=== PATIENT | male | born 1960 | race Caucasian/White ===

== ENCOUNTER 2024-11-26 15:52 | Inpatient (IN) | payer MEDICAID, OTHER ==
[~2024-11-26] VITALS: Ht 167.6 cm; Wt 88.2 kg
[2024-11-26 00:25] VITALS: BP 127/72; PULSE 60; RESP 16; TEMP 97.6; O2SAT 96
--- NOTE | 2024-11-26 16:08 | ED.PDOC ---
HPI (NEURO) HPI Comments This is a 64-year-old male, with a PMHX of hypertension, who presents to the ED via EMS with a chief complaint of syncopal episode with associated dizziness just minutes ago. Per EMS, patient has been having syncopal episodes for 1-1/2 years. Per patient, syncopal episodes happen spontaneously, typically when walking, and do not last longer than a couple of seconds. Patient is currently seeing a neurologist. Patient has no further complaints at this time and otherwise denies further associated symptoms of N/V/D, fever, chills, headache, or blurred vision. Chief Complaint: Syncope Time Seen by MD: 16:00 Reviewed Notes: Community Planning Technician Notes, Medications, Allergies Information Source: Patient, Emergency Med Personnel Mode of Arrival: EMS Severity: Moderate Timing: Came on: Suddenly Circumstances: Spontaneous Symptoms: Syncope During: Awake Associated Signs and Symptoms: Other (syncope with mild dizziness ) Past Medical History PAST MEDICAL HISTORY: HTN Surgical History: Denies all surgeries Family History Family History: Reviewed,noncontributory to illness, No family hx of Cancer, No family hx of DM, No family hx of Heart sally, No family hx of HTN, No family hx ofKidney sally, No family hx of Liver sally, No family hx of Lung sally, No family hx of Stroke Social History Smoker: Non-Smoker Alcohol: Denies ETOH Use Drugs: Denies Drug Use Lives In: Home Constitutional: denies: chills, diaphoresis, fatigue, fever, malaise, sweats, weakness, others EENTM: denies: blurred vision, double vision, ear bleeding, ear discharge, ear drainage, ear pain, ear ringing, eye pain, eye redness, hearing loss, mouth pain, mouth swelling, nasal discharge, nose bleeding, nose congestion, nose pain, photophobia, tearing, throat pain, throat swelling, voice changes, others Respiratory: denies: cough, hemoptysis, orthopnea, SOB at rest, shortness of breath, SOB with excertion, stridor, wheezing, others Cardiovascular: denies: chest pain, dizzy spells, diaphoresis, Dyspnea on exertion, edema, irregular heart beat, left arm pain, lightheadedness, palpitations, PND, syncope, others Gastrointestinal: denies: abdomen distended, abdominal pain, blood streaked bowels, constipated, diarrhea, dysphagia, difficulty swallowing, hematemesis, melena, nausea, poor appetite, poor fluid intake, rectal bleeding, rectal pain, vomiting, others Genitourinary: denies: burning, dysuria, flank pain, frequency, hematuria, incontinence, penile discharge, penile sore, pain, testicle pain, testicle swelling, urgency, others Neurological: reports: dizziness, others (syncope ); denies: fainting, headache, left sided numbness, left sided weakness, numbness, paresthesia, pre- existing deficit, right sided numbness, right sided weakness, seizure, speech problems, tingling, tremors, weakness Musculoskeletal: denies: back pain, gout, joint pain, joint swelling, muscle pain, muscle stiffness, neck pain, others Integumetry: denies: bruises, change in color, change in hair/nails, dryness, laceration, lesions, lumps, rash, wounds, others Allergic/Immunocompromised: denies: Difficulty Healing, Frequent Infections, Hives, Itching, others Hematologic/Lymphatic: denies: anemia, blood clots, easy bleeding, easy br uising, swollen glands, others Endocrine: denies: excessive hunger, excessive sweating, excessive thirst, excessive urination, flushing, intolerance to cold, intolerance to heat, unexplained weight gain, unexplained weight loss, others Psychiatric: denies: anxiety, bipolar disorder, depression, hopeless, panic disorder, schizophrenia, sleepless, suicidal, others All Other Systems: Reviewed and Negative Physical Exam General Appearance: Moderate Distress, Obese HEENT: Normal ENT Inspection, Pharynx Normal, TMs Normal Neck: Full Range of Motion, Non-Tender, Normal, Normal Inspection Respiratory: Chest Non-Tender, Lungs Clear, No Accessory Muscle Use, No Respiratory Distress, Normal Breath Sounds Cardiovascular: No Edema, No JVD, No Murmur, No Gallop, Normal Peripheral Pulses, Regular Rate/Rhythm Breast Exam: Deferred Gastrointestinal: No Organomegaly, Non Tender, No Pulsatile Mass, Normal Bowel Sounds, Soft Genitalia: Deferred Pelvic: Deferred Rectal: Deferred Extremities: No calf tenderness, Normal capillary refill, Normal inspection, Normal range of motion, Non-tender, No pedal edema Musculoskeletal : Apperance: Normal Neurologic: Alert, microchip specialist II-XII nml as Tested, No Motor Deficits, Normal Affect, Normal Mood, No Sensory Deficits Cerebellar Function: NOT DONE Reflexes: NOT DONE Skin: Dry, Normal Color, Warm Peripheral Pulses: 3+ Radial (R), 3+ Radial (L) Lymphatic: No Adenopathy EKG EKG : Pulse Rate (adult): 71 [place]: Normal Cardiac Rhythm: NSR Block: None Hypertrophy: None ST: Normal Was a procedure done? Was a procedure done?: No Differential Diagnosis (SZ) Seizure: Psychogenic Seizure, Closed Head Injury, CVA/TIA, Hypocalcemia, Syncope X-Ray, Labs, Meds, VS Vital Signs Date Time Temp Pulse Resp B/P (MAP) Pulse Ox O2 Delivery O2 Flow Rate FiO2 11/26/24 16:45 97.8 82 16 134/85 (101) 98 97.8 11/26/24 16:45 82 16 98 Room Air* 0 21 11/26/24 16:17 71 11/26/24 16:07 71 11/26/24 16:00 97.8 72 18 118/70 98 97.8 11/26/24 16:00 97.8 72 18 118/70 (86) 98 97.8 Lab Test 11/26/24 16:49 Range/Units White Blood Count 5.0 4.4-10.8 10^3/uL Red Blood Count 4.04 L 4.5-5.90 10^6/uL Hemoglobin 13.0 L 13.5-17.5 g/dL Hematocrit 38.4 L 41.0-53.0 % Mean Corpuscular Volume 95.1 80.0-100.0 fL Mean Corpuscular Hemoglobin 32.2 H 28.0-32.0 pg Mean Corpuscular Hemoglobin Concent 33.9 32.0-36.0 g/dL Red Cell Distribution Width 14.4 H 11.8-14.3 % Platelet Count 195 140-450 10^3/uL Mean Platelet Volume 7.3 6.9-10.8 fL Neutrophils (%) (Auto) 76.1 37.0-80.0 % Lymphocytes (%) (Auto) 13.1 10.0-50.0 % Monocytes (%) (Auto) 9.1 0.0-12.0 % Eosinophils (%) (Auto) 1.3 0.0-7.0 % Basophils (%) (Auto) 0.4 0.0-2.0 % Neutrophils # (Auto) 3.8 1.6-8.6 10 ^3/uL Lymphocytes # (Auto) 0.7 0.4-5.4 10 ^3/uL Monocytes # (Auto) 0.5 0-1.3 10 ^3/uL Eosinophils # (Auto) 0.1 0-0.8 10 ^3/uL Basophils # (Auto) 0 0-0.2 10 ^3/uL Nucleated Red Blood Cells 0.2 % Sodium Level 140 136-145 mmol/L Potassium Level 4.6 3.5-5.1 mmol/L Chloride Level 106 98-107 mmol/L Carbon Dioxide Level 26 20-31 mmol/L Anion Gap 8 5-15 Blood Urea Nitrogen 16 9-23 mg/dL Creatinine 1.10 0.700-1.30 mg/dL Glomerular Filtration Rate Calc 75 >90 mL/min BUN/Creatinine Ratio 14.5 10.0-20.0 Serum Glucose 104 74-106 mg/dL Calcium Level 8.8 8.7-10.4 mg/dL Troponin I High Sensitivity < 3 L </=54 ng/L Current Medications Medications (Trade) Dose Ordered Sig/Steven Route Start Time Stop Time Status Last Admin Sodium Chloride 1,000 ml @ 1,000 mls/hr Q1H ONCE IV 11/26/24 16:15 11/26/24 17:14 DC 11/26/24 16:15 [place] [id number] Ph: [phone] DIAGNOSTIC IMAGING Diagnostic Imaging Report : [id number] Signed PATIENT: FLORINDA OLSON ACCT: [id number] UNIT: [id number] : 1960 LOC: ER ROOM / BED: / AGE / SEX: 64 / M ADM STATUS: REG ER SERVICE 1615 ORDERING PHYSICIAN: COLT VASQUES MD PROCEDURE(s): HWOCT - HEAD WITHOUT CONTRAST REASON: sycope ORDER NUMBER(s): [id number], ACCESSION NUMBER(s): [id number] EXAM: CT HEAD WITHOUT CONTRAST INDICATION: sycope TECHNIQUE: CT of the head without intravenous contrast. Radiation Dose Information: CT Dose: CTDI volume is 53.44 mGy. Dose-length product is 856.83 mGy*cm The dose indicators for CT are the volume Computed Tomography (CT) Dose Index (CTDIvol) and the Dose Length Product (DLP), and are measured in units of mGy and mGy-cm, respectively. These indicators are not patient dose, but values generated from the CT scanner acquisition factors. The report includes radiation exposure data for exposures received during this examination. COMPARISON: None FINDINGS: There is no evidence of acute intracranial hemorrhage, extra-axial collection, mass effect, midline shift, herniation or hydrocephalus. The ventricles, sulci and cisterns are age appropriate. The galvin-white differentiation is intact. Patchy periventricular and subcortical white matter hypoattenuation is nonspecific but may be related to small vessel ischemic disease. The visualized paranasal sinuses and mastoid air cells are clear. The surrounding soft tissues and osseous structures are unremarkable. IMPRESSION: 1. No acute intracranial abnormality. HS:Y Patient alert. Complaining of having syncope. He has been having frequent falls. Vitals stable. Answering all questions. Able to move his extremities. Has good strength in extremities. No sign of CVA. Establish intravenous access. Was given fluids. CT of the head reviewed does not show any acute changes. Explained to the patient. Continue monitoring. Time of 1ST Reevaluation: 17:51 Reevaluation 1ST: Unchanged Patient Education/Counseling: Diagnosis, Treatment Family Education/Counseling: No Family Present Departure 1 Departure Time of Disposition: 17:00 Impression: Primary Impression: Syncope Qualified Codes: R55 - Syncope and collapse Disposition: ADMITTED INPATIENT Admit to: Med Surg Condition: Guarded Critical Care Note Critical Care Time?: No Stability Stability form required: No Heart Score Heart Score: Heart Score Response (Comments) Value History Slightly Suspicious 0 EKG Normal 0 Age 45-64 1 Risk Factors >3 or Hx ASHD 2 Troponin Normal limit 0 Total 3 I personally scribed for COLT VASQUES MD ([email or web address]) on 11/26/24 at 16:08. El ectronically submitted by Kanika KRAMER). I personally scribed for COLT VASQUES MD ([email or web address]) on 11/26/24 at 16:17. Electronically submitted by Kanika Jarrett ([email or web address]). I personally scribed for COLT VASQUES MD ([email or web address] on 11/26/24 at 17:26. Electronically submitted by Kanika Jarrett ([email or web address]). COLT VASQUES MD Nov 26, 2024 16:08
[2024-11-26] MEDS: SODIUM CHLORIDE 0.9% 1,000 ML IV ONE (16:15)
[2024-11-26 16:45] VITALS: PULSE 82; RESP 16; O2SAT 98
--- NOTE | 2024-11-26 16:56 | DVH ---
EXAM: CT HEAD WITHOUT CONTRAST INDICATION: sycope TECHNIQUE: CT of the head without intravenous contrast. Radiation Dose Information: CT Dose: CTDI volume is 53.44 mGy. Dose-length product is 856.83 mGy*cm The dose indicators for CT are the volume Computed Tomography (CT) Dose Index (CTDIvol) and the Dose Length Product (DLP), and are measured in units of mGy and mGy-cm, respectively. These indicators are not patient dose, but values generated from the CT scanner acquisition factors. The report includes radiation exposure data for exposures received during this examination. COMPARISON: None FINDINGS: There is no evidence of acute intracranial hemorrhage, extra-axial collection, mass effect, midline s hift, herniation or hydrocephalus. The ventricles, sulci and cisterns are age appropriate. The galvin-white differentiation is intact. Patchy periventricular and subcortical white matter hypoattenuation is nonspecific but may be related to small vessel ischemic disease. The visualized paranasal sinuses and mastoid air cells are clear. The surrounding soft tissues and osseous structures are unremarkable. IMPRESSION: 1. No acute intracranial abnormality. HS:Y
[2024-11-26 17:16] LABS: Chloride 106 mmol/L (98-107); Potassium 4.6 mmol/L (3.5-5.1); Sodium 140 mmol/L (136-145)
[2024-11-26 17:17] LABS: Anion Gap 8 (5-15); Calcium 8.8 mg/dL (8.7-10.4); Carbon Dioxide 26 mmol/L (20-31)
[2024-11-26 17:22] LABS: BUN/Creatinine Ratio 14.5 (10.0-20.0); Blood Urea Nitrogen 16 mg/dL (9-23); Glucose 104 mg/dL (74-106)
[2024-11-26 17:48] LABS: Hematocrit 38.4 % (41.0-53.0); Hemoglobin 13.0 g/dL (13.5-17.5); Mean Corpuscular Hemoglobin 32.2 pg (28.0-32.0); Mean Corpuscular Volume 95.1 fL (80.0-100.0); Nucleated Red Blood Cells % 0.2 %
[2024-11-26] MEDS ORDERED: ACETAMINOPHEN 325 MG TAB PO PRN (19:00)
[2024-11-26] MEDS ORDERED: DOCUSATE SOD 100 MG CAP PO PRN (19:00)
[2024-11-26] MEDS ORDERED: ONDANSETRON HCL 4 MG/2 ML VIAL IV PRN (19:00)
--- NOTE | 2024-11-26 19:02 | DVHHP2 ---
Admitting Diagnosis: Syncope History of Present Illness This is a 64-year-old male, with a PMHX of hypertension, who presents to the ED via EMS with a chief complaint of syncopal episode with associated dizziness just minutes ago. Per EMS, patient has been having syncopal episodes for 1-1/2 years. Per patient, syncopal episodes happen spontaneously, typically when walking, and do not last longer than a couple of seconds. Patient is currently seeing a neurologist. Patient has no further complaints at this time and otherwise denies further associated symptoms of N/V/D, fever, chills, headache, or blurred vision. PAST MEDICAL HISTORY: HTN Surgical History: Denies all surgeries Family History Family History: Reviewed,noncontributory to illness, No family hx of Cancer, No family hx of DM, No family hx of Heart sally, No family hx of HTN, No family hx ofKidney sally, No family hx of Liver sally, No family hx of Lung sally, No family hx of Stroke Social History Smoker: Non-Smoker Alcohol: Denies ETOH Use Drugs: Denies Drug Use Lives In: Home Allergies: Coded Allergies: NO KNOWN ALLERGIES (Unverified , 11/26/24) Vital Signs Vital Signs Date Time Temp Pulse Resp B/P (MAP) Pulse Ox O2 Delivery O2 Flow Rate FiO2 11/26/24 16:45 97.8 82 16 134/85 (101) 98 97.8 11/26/24 16:45 Room Air* 0 21 Physical Exam 64 years old male, well nourished well developed. No apparent distress HEENT-atraumatic normocephalic Heart-regular rate and rhythm Lungs clear to auscultate bilaterally Abdomen soft nontender nondistended musculoskeletal-no edema cyanosis neuro: aox3, no focal deficit SEPSIS Sepsis Screen Date sepsis recognized/suspect: Nov 26, 2024 Time Sepsis recognized/suspect: 1644 Recent Procedure: No On Antibiotic Therapy: No Respiratory Rate >20: No Heart Rate >90: No Temp<36 C (96.8 F) or >38.3 C: No SBP <90 or MAP <65 mmHG: No New Acute Mental Status Change: No Is the patient on CPAP, BIPAP,: No Physician Orders Electrocardigram (11/26/24 16:12) Electrocardigram (11/26/24 17:12) Electrocardigram (11/26/24 19:12) Urinalysis (11/26/24 16:15) Head Without Contrast (11/26/24 16:15) * Neurology Consult (11/26/24 18:58) Echo 2d Mode Cardiac Dop (11/26/24 18:58) Neuro Checks Per Unit Protocol (11/26/24 18:58) Carotid Duplx W Color Dop (11/26/24 18:58) Orthostatic Vital Signs (11/26/24 18:58) Admit (11/26/24 18:58) Code Status (11/26/24 18:58) Vital Signs .PER UNIT PROTOCOL (11/26/24 18:58) Review Orders With Adm.Md (11/26/24 18:58) Encourage Activity As Tolerate (11/26/24 18:58) Regular Diet (11/27/24 Breakfast) Sodium Chloride Lock (Saline Lock Ns) (11/26/24 22:00) Docusate Sodium Capsule (Colace Capsule) (11/26/24 19:00) Acetaminophen Tablet (Tylenol Tablet) (11/26/24 19:00) Notify Md Of Changes From Base (11/26/24 18:58) Advance Directive (11/26/24 18:58) Patient Condition (11/26/24 18:58) Allergies (11/26/24 18:58) Hydrocodone-Acet 5/325mg Tab ([place] 5/32 (11/26/24 19:00) Ondansetron Hcl (Zofran) (11/26/24 19:00) Lovenox 40mg (11/27/24 10:00) Comprehensive Metabolic Panel (11/27/24 05:00) Comprehensive Metabolic Panel (11/28/24 05:00) Comprehensive Metabolic Panel (11/29/24 05:00) Comprehensive Metabolic Panel (11/30/24 05:00) Comprehensive Metabolic Panel (12/01/24 05:00) Complete Blood Count (11/27/24 05:00) Complete Blood Count (11/28/24 05:00) Complete Blood Count (11/29/24 05:00) Complete Blood Count (11/30/24 05:00) Complete Blood Count (12/01/24 05:00) Vital Signs Date Time Temp Pulse Resp B/P (MAP) Pulse Ox O2 Delivery O2 Flow Rate FiO2 11/26/24 16:45 97.8 82 16 134/85 (101) 98 97.8 11/26/24 16:45 82 16 98 Room Air* 0 21 11/26/24 16:17 71 11/26/24 16:07 71 11/26/24 16:00 97.8 72 18 118/70 98 97.8 11/26/24 16:00 97.8 72 18 118/70 (86) 98 97.8 Laboratory Tests Test 11/26/24 16:49 White Blood Count 5.0 10^3/uL (4.4-10.8) Medications Medications Dose Ordered Sig/Steven Route Start Time Stop Time Status Last Admin Dose Admin Sodium Chloride 1,000 ml @ 1,000 mls/hr Q1H ONCE IV 11/26/24 16:15 11/26/24 17:14 DC 11/26/24 16:15 Results Labs Test 11/26/24 17:00 11/26/24 16:49 Range/Units White Blood Count 5.0 4.4-10.8 10^3/uL Red Blood Count 4.04 L 4.5-5.90 10^6/uL Hemoglobin 13.0 L 13.5-17.5 g/dL Hematocrit 38.4 L 41.0-53.0 % Mean Corpuscular Volume 95.1 80.0-100.0 fL Mean Corpuscular Hemoglobin 32.2 H 28.0-32.0 pg Mean Corpuscular Hemoglobin Concent 33.9 32.0-36.0 g/dL Red Cell Distribution Width 14.4 H 11.8-14.3 % Platelet Count 195 140-450 10^3/uL Mean Platelet Volume 7.3 6.9-10.8 fL Neutrophils (%) (Auto) 76.1 37.0-80.0 % Lymphocytes (%) (Auto) 13.1 10.0-50.0 % Monocytes (%) (Auto) 9.1 0.0-12.0 % Eosinophils (%) (Auto) 1.3 0.0-7.0 % Basophils (%) (Auto) 0.4 0.0-2.0 % Neutrophils # (Auto) 3.8 1.6-8.6 10 ^3/uL Lymphocytes # (Auto) 0.7 0.4-5.4 10 ^3/uL Monocytes # (Auto) 0.5 0-1.3 10 ^3/uL Eosinophils # (Auto) 0.1 0-0.8 10 ^3/uL Basophils # (Auto) 0 0-0.2 10 ^3/uL Nucleated Red Blood Cells 0.2 % Sodium Level 140 136-145 mmol/L Potassium Level 4.6 3.5-5.1 mmol/L Chloride Level 106 98-107 mmol/L Carbon Dioxide Level 26 20-31 mmol/L Anion Gap 8 5-15 Blood Urea Nitrogen 16 9-23 mg/dL Creatinine 1.10 0.700-1.30 mg/dL Glomerular Filtration Rate Calc 75 >90 mL/min BUN/Creatinine Ratio 14.5 10.0-20.0 Serum Glucose 104 74-106 mg/dL Calcium Level 8.8 8.7-10.4 mg/dL Troponin I High Sensitivity < 3 L </=54 ng/L Primary Diagnosis syncope Plan Negative Neuro check per floor protocol Neurology consult Check carotid Doppler Check echo of the heart Orthostatic vitals Regular diet Full code Lovenox for DVT prophylaxis No GI prophylaxis needed Plan discussed with: Patient Problems List: (1) Syncope Status: Acute Date of Service: Nov 26, 2024 Billing Provider: CHAGO BOWLING MD Common Visit Codes: [id number] INP/OBS CARE (MOD) CHAGO BOWLING MD Nov 26, 2024 19:02
[2024-11-26 19:24] LABS: Urine Protein, UAD Negative (Negative)
[2024-11-26 19:30] VITALS: PULSE 71; RESP 14; O2SAT 95
[2024-11-26] MEDS: HYDROcodone-ACET 5/325MG TAB PO PRN (19:44)
[2024-11-26 21:48] VITALS: BP 127/72; PULSE 60; RESP 16; TEMP 97.6; O2SAT 99
[2024-11-27] VITALS (9 sets, daily range): BP systolic 127–156; BP diastolic 61–96; PULSE 56–95; RESP 15–18; TEMP 97.5–98.7; O2SAT 96–98
[2024-11-27] MEDS: SODIUM CHLOR 0.9% PF (SALINE LOCK) 10ML VIAL/SYR IV SCH (03:48)
--- NOTE | 2024-11-27 07:13 | ECG ---
[facility] Test Date: 2024-11-26 Test Time: 16:07:30 Pat Name: FLORINDA OLSON Department: ED Room: 0285T Gender: M Gamb Cutter: carlos : 1960 Requested By: COLT VASQUES Order Number: [id number] Reading MD: Sarkis Warren Measurements Intervals [place] Rate: 71 P: 49 NC: 55 QRS: -19 QRSD: 97 T: 44 QT: 419 QTc: 456 Interpretive Statements Sinus rhythm Atrial premature complex Short NC interval Abnormal R-wave progression, early transition Inferior infarct, old Electronically Signed On 11-28-2024 22:05:11 PDT by Sarkis Warren Please click the below link to view image of tracing.
[2024-11-27 07:47] LABS: Hematocrit 35.9 % (41.0-53.0); Hemoglobin 12.3 g/dL (13.5-17.5); Mean Corpuscular Hemoglobin 32.1 pg (28.0-32.0); Mean Corpuscular Volume 94.0 fL (80.0-100.0); Nucleated Red Blood Cells % 0.1 %
[2024-11-27 08:04] LABS: Albumin 3.7 g/dL (3.2-4.8); Alkaline Phosphatase 74 U/L (46-116); Anion Gap 7 (5-15); BUN/Creatinine Ratio 20.2 (10.0-20.0); Bilirubin, Total 0.5 mg/dL (0.2-1.0); Blood Urea Nitrogen 18 mg/dL (9-23); Carbon Dioxide 25 mmol/L (20-31); Glucose 105 mg/dL (74-106); Potassium 4.1 mmol/L (3.5-5.1); Sodium 140 mmol/L (136-145); Total Protein 6.1 g/dL (5.7-8.2)
[2024-11-27 08:06] LABS: Alanine Aminotransferase 91 U/L (7-40); Calcium 8.6 mg/dL (8.7-10.4); Chloride 108 mmol/L (98-107)
[2024-11-27] MEDS: ENOXAPARIN SOD 40 MG/0.4 ML SYRINGE SC SCH (09:15)
--- NOTE | 2024-11-27 10:40 | DVH ---
CLINICAL HISTORY: syncope TECHNIQUE: Perez-scale, color and duplex doppler imaging of the bilateral carotid systems was performbeka nelson WID: COMPARISON: None Findings: Right carotid system: Mild eccentric atherosclerotic plaque. Left carotid system: No significant atherosclerotic plaque The right and left common carotid and external carotid arteries are patent. There is antegrade flow i n both vertebral arteries and external carotid arteries. The following flow velocities were obtained (cm/sec). Right carotid System: ICA PSV: 99 ICA/CCA Ratio: 1.1 Left carotid System: ICA PSV: 115 ICA/CCA Ratio: .4 IMPRESSION: 1. No hemodynamically significant stenosis 2. Minimal right carotid artery plaque
--- NOTE | 2024-11-27 11:02 | DVHPN2 ---
Reviewed: Care Plan, H&P, Labs, Medications, Previous Orders, Radiology Changes from previous H/P or p: No Changes Objective Vitals Vital Signs Date Time Temp Pulse Resp B/P (MAP) Pulse Ox O2 Delivery O2 Flow Rate FiO2 11/27/24 09:00 97.7 65 18 153/96 (115) 96 97.7 11/27/24 00:25 Room Air* 0 21 Intake/Output Intake and Output 11/27/24 07:00 Intake Total 1800 ml Balance 1800 ml Intake Oral 800 ml IV Total 1000 ml # Voids 10 Medications Current Medications Medications Dose Ordered Sig/Steven Route Start Time Stop Time Status Last Admin Dose Admin Sodium Chloride 10 ml Q8HR IV 11/26/24 22:00 11/27/24 06:43 10 ML Docusate Sodium 100 mg BIDPRN PRN PO 11/26/24 19:00 Acetaminophen 650 mg Q6HP PRN PO 11/26/24 19:00 Acetaminophen/ Hydrocodone Bitart 1 tab Q4HP PRN PO 11/26/24 19:00 11/27/24 03:48 1 TAB Ondansetron HCl 4 mg Q4HP PRN IV 11/26/24 19:00 Enoxaparin Sodium 40 mg DAILY SC 11/27/24 10:00 11/27/24 09:15 40 MG Laboratory Results Laboratory Tests 11/27/24 06:55 Chemistry Test 11/26/24 16:49 11/27/24 06:55 Calcium Level 8.8 mg/dL (8.7-10.4) 8.6 mg/dL (8.7-10.4) L Albumin 3.7 g/dL (3.2-4.8) Total Protein 6.1 g/dL (5.7-8.2) LFT Test 11/27/24 06:55 Alanine Aminotransferase (ALT) 91 U/L (7-40) H Alkaline Phosphatase 74 U/L (46-116) Aspartate Amino Transferase (AST) 46 U/L (13-40) H Total Bilirubin 0.5 mg/dL (0.2-1.0) Urinalysis Test 11/26/24 17:00 Urine Color Light-yellow (Yellow) Urine Clarity Clear (Clear) Urine pH 6.5 (5.0-9.0) Urine Specific [place] 1.006 (1.001-1.035) Urine Protein Negative (Negative) Urine Ketones Negative (Negative) Urine Blood Negative /uL (Negative) Urine Nitrite Negative (Negative) Urine Bilirubin Negative (Negative) Urine Urobilinogen Normal mg/dL (Negative) Urine Leukocyte Esterase Negative /uL (Negative) Urine RBC 1 /hpf (0 - 3) Urine Microscopic WBC 1 /HPF (0-3) Urine Squamous Epithelial Cells None seen /hpf (<5) Urine Bacteria None seen /hpf (None Seen) Urine Glucose Normal mg/dL (Normal) Labs and/or images reviewed: Labs reviewed by me, Image(s) reviewed by me Assessment/Plan Assessment/Plan Syncope unknown etiology rule out TIA rule out CVA, CT head negative carotid ultrasound negative neurology consult by Dr. Britton History of syncopal episodes for the last 1 1/2 years being followed by a neurologist Hypertension History of cocaine use 12 yrs back. We will check urine drug screen Echocardiogram pending Time spent 40 minutes Plan discussed with: Patient Date of Service: Nov 27, 2024 Billing Provider: DARRICK MURRAY MD Common Visit Codes: [id number] INP/OBS CARE(HIGH) DARRICK MURRAY MD Nov 27, 2024 11:02
--- NOTE | 2024-11-27 12:37 | DVHSR ---
APPROVED REPORT EXAM: Two-dimensional and M-mode echocardiogram with Doppler and color Doppler. Blood Pressure: 148/61 mmHg INDICATION Syncope RISK FACTORS Height: 66, Weight: 194 DIMENSIONS LVDd5.0 (3.8-5.7cm)LA (2D) (1.9-4.0cm)Aortic Root4.1 (2.0-3.7cm) LVDs3.0 (2.5-4.0cm)LA (MM) (1.9-4.0cm)Aortic Cusp Exc1.7 (1.5-2.0cm) EF (%) 71.0 (55-70%)Rt. Atrium (1.9-4.0cm)Asc. Aorta cm Mitral Valve MitralMitral Stenosis E wave0.72m/sMV Mean GR.mmHg A wave0.89m/sMV Peak GR.mmHg E/A ratio0.82D MVAcm2 DECEL [id number] 1/2 List62vs IVRTmsDop MVA2.22cm2 Aortic Valve Aortic ValveAortic Stenosis V11.00m/Doug Mean GR.3mmHg V21.29m/Doug Peak GR.7mmHg LVOT Diameter2.2 (1.8-2.4cm)Doppler AVA2.95cm2 Other Information Technically limited study due to body habitus. Conclusion lvef 55% normal rv function no severe valve abnormalities noted left atrium enlarged mild
[2024-11-27] MEDS: SUCRALFATE 1 GM TAB PO ONE (14:54)
[2024-11-27] MEDS: PANTOPRAZOLE 40 MG TAB PO ONE (14:55)
[2024-11-27] MEDS: LISINOPRIL 5 MG TAB PO ONE (14:55)
[2024-11-27 15:38] LABS: Cannabinoid Screen, Urine Pos (NEGATIVE); Opiate Scree,Urine Neg (NEGATIVE)
[2024-11-27 15:39] LABS: Amphetamine Screen, Urine Neg (NEGATIVE); Barbiturate Scree,Urine Neg (NEGATIVE); Benzodiazephine Screen, Urine Neg (NEGATIVE); Cocaine Screen, Urine Neg (NEGATIVE); Phencyclidine Screen, Urine Neg (NEGATIVE)
[2024-11-27] MEDS: SUCRALFATE 1 GM TAB PO SCH (17:38)
--- NOTE | 2024-11-27 21:15 | DVHINCON2 ---
Date of service: Nov 27, [address] San Reason for Consultation Syncope History of Present Illness Mr. Conley is a 64 years old right-handed gentleman with a history of hypertension, he came to the [facility] on 11/26/2024 with a chief complaint of syncopal event. At this time he is alert and fully oriented, he provided the following history On 11/26/2024, he had lightheadedness all the morning (he claimed he was well hydrated and did not have nausea, vomiting) when he was walking in the store with his granddaughter, without dizziness or any other warning symptoms, he passed out with loss of consciousness for less than 1 minute, on waking up, he recognized his granddaughter, the place and time, but he was confused for a few minutes because he did not know what had happened, and he noticed dizziness/lightheadedness. He went home, when he was walking towards the door, without any warning, he passed out very briefly, and he was able to recognize people around him, placement time on waking up, but he did not know what had happened Once in 2022 he passed out and he woke up in the [facility] w ith a laceration in the scalp, he does not remember what tests he had there, he does not remember the diagnosis. Once in 06/2023, he had similar brief passing out when he was walking without warning symptoms, on waking up, he was consciousness everything, a person standing by told him that he had shaking and then fell onto the ground. He went to the [facility] a few days later where he had an unremarkable CT brain scan Since 2021, he has mild but progressive low back pain, with pain shooting from the low back to the lateral aspect of the right thigh Since the end of 2023, he has numbness and pain in the lateral aspect of the right thigh, worse when he standing and walking, better when he is resting in bed UDS, 11/26/2024: Unremarkable UDS, 11/27/2024: Cannabinoids WBC/HB/PLT/MCV, 11/27/2024: 4.7/12.3/190/94 TBI/AST/ALT/AP, 11/27/2024: 0.5/46/91/47 Carotid Doppler, 11/27/2024: 1. No hemodynamically significant stenosis 2. Minimal right carotid artery plaque CT head, 11/26/2024: No acute intracranial abnormality Past Medical History Hypertension, no stroke, no seizure disorder Past Surgical History Appendectomy, cholecystectomy, cervical spine fusion, bilateral cataract surgery, right shoulder rotator cuff repair, finger amputation, Family History Coronary artery disease, heart attack Social History He smoke, denies a history of drug/alcohol abuse Allergies: Coded Allergies: NO KNOWN ALLERGIES (Unverified , 11/26/24) Current Medications Current Medications Medications (Trade) Dose Ordered Sig/Steven Route PRN Reason Start Time Stop Time Status Last Admin Sodium Chloride (Saline Lock Ns) 10 ml Q8HR IV 11/26/24 22:00 11/27/24 14:55 Enoxaparin Sodium (Lovenox) 40 mg DAILY SC 11/27/24 10:00 11/27/24 09:15 Pantoprazole Sodium (Protonix Tablet) 40 mg DAILY PO 11/28/24 10:00 Lisinopril (Zestril Tablet) 10 mg DAILY PO 11/28/24 10:00 Sucralfate (Carafate Tab) 1 gm QID PO 11/27/24 18:00 11/27/24 17:38 Review of Systems As above, the other systems are negative Vital Signs Vital Signs Date Time Temp Pulse Resp B/P (MAP) Pulse Ox O2 Delivery O2 Flow Rate FiO2 11/27/24 20:00 Room Air* 0 21 11/27/24 17:00 98.0 59 18 156/96 (116) 98 98.0 Physical Exam GENERAL EXAM: General: the patient is well developed and nourished. No acute distress. HEENT: Normocephalic, neck is supple, no carotid bruits. No mass. RESPIRATORY: Normal respiratory effort with symmetrical lung expansion. Lungs clear to auscultation. CARDIOVASCULAR: Regular rate and rhythm with no murmurs. S1, S2. ABDOMEN: Soft, nontender, normal bowel sound MUSCULOSKELETAL EXAM: Status post finger amputation Tenderness to palpation in the lumbar spine NEUROLOGICAL: MENTAL STATUS: Awake and alert. Oriented to person, place, time and general circumstances. Able to give personal history. SPEECH, LANGUAGE, HIGHER CORTICAL FUNCTION: no aphasia or dysathria. CRANIAL NERVES: #2: Intact visual iglesias to confrontation. The optic discs were sharp. #3,4,6: Pupils are equal, round and reactive. EOMs full and conjugate. #5: Facial sensation intact in all three divisions bilaterally. Mandibular strength intact. #7: Facial muscles symmetrical and strength intact. #8: Hearing grossly normal to voice. #9,10: Uvula and soft palate rise in the midline. Swallow and voice are normal. #11: Trapezius and sternomastoid strength intact bilaterally. #12: Tongue midline. No fasciculations or atrophy. SENSATION: Sensation to touch and pinprick is normal. MOTOR: Normal tone in the upper and lower extremity. Normal muscle bulk. No fasciculations. No abnormal movements or posturing. Muscle strength of the major groups in the upper extremities is 5/5. Muscle strength of the major groups in the lower extremities is 5/5. REFLEXES: Deep tendon reflexes strong in the right upper extremity, left knee. No pathological reflexes. CEREBELLAR/COORDINATION: Finger to nose and heel to becker are normal bilateral ly. GAIT/STATION: deferred Labs/Diagnostic Data Labs Test 11/27/24 15:07 11/27/24 06:55 11/26/24 17:00 11/26/24 16:49 Range/Units Urine Opiates Screen Neg NEGATIVE Urine Fentanyl Screen Neg NEGATIVE Urine Barbiturates Screen Neg NEGATIVE Urine Phencyclidine Screen Neg NEGATIVE Urine Amphetamines Screen Neg NEGATIVE Urine Benzodiazepines Screen Neg NEGATIVE Urine Cocaine Screen Neg NEGATIVE Urine Cannabinoids Screen Pos NEGATIVE White Blood Count 4.7 4.4-10.8 10^3/uL Red Blood Count 3.82 L 4.5-5.90 10^6/uL Hemoglobin 12.3 L 13.5-17.5 g/dL Hematocrit 35.9 L 41.0-53.0 % Mean Corpuscular Volume 94.0 80.0-100.0 fL Mean Corpuscular Hemoglobin 32.1 H 28.0-32.0 pg Mean Corpuscular Hemoglobin Concent 34.2 32.0-36.0 g/dL Red Cell Distribution Width 14.0 11.8-14.3 % Platelet Count 190 140-450 10^3/uL Mean Platelet Volume 7.6 6.9-10.8 fL Neutrophils (%) (Auto) 44.6 37.0-80.0 % Lymphocytes (%) (Auto) 37.4 10.0-50.0 % Monocytes (%) (Auto) 12.2 H 0.0-12.0 % Eosinophils (%) (Auto) 5.2 0.0-7.0 % Basophils (%) (Auto) 0.6 0.0-2.0 % Neutrophils # (Auto) 2.1 1.6-8.6 10 ^3/uL Lymphocytes # (Auto) 1.7 0.4-5.4 10 ^3/uL Monocytes # (Auto) 0.6 0-1.3 10 ^3/uL Eosinophils # (Auto) 0.2 0-0.8 10 ^3/uL Basophils # (Auto) 0 0-0.2 10 ^3/uL Nucleated Red Blood Cells 0.1 % Sodium Level 140 136-145 mmol/L Potassium Level 4.1 3.5-5.1 mmol/L Chloride Level 108 H 98-107 mmol/L Carbon Dioxide Level 25 20-31 mmol/L Anion Gap 7 5-15 Blood Urea Nitrogen 18 9-23 mg/dL Creatinine 0.89 0.700-1.30 mg/dL Glomerular Filtration Rate Calc 96 >90 mL/min BUN/Creatinine Ratio 20.2 H 10.0-20.0 Serum Glucose 105 74-106 mg/dL Calcium Level 8.6 L 8.7-10.4 mg/dL Total Bilirubin 0.5 0.2-1.0 mg/dL Aspartate Amino Transferase (AST) 46 H 13-40 U/L Alanine Aminotransferase (ALT) 91 H 7-40 U/L Alkaline Phosphatase 74 46-116 U/L Total Protein 6.1 5.7-8.2 g/dL Albumin 3.7 3.2-4.8 g/dL Urine Color Light-yellow Yellow Urine Clarity Clear Clear Urine pH 6.5 5.0-9.0 Urine Specific [place] 1.006 1.001-1.035 Urine Protein Negative Negative Urine Ketones Negative Negative Urine Blood Negative Negative /uL Urine Nitrite Negative Negative Urine Bilirubin Negative Negative Urine Urobilinogen Normal Negative mg/dL Urine Leukocyte Esterase Negative Negative /uL Urine RBC 1 0 - 3 /hpf Urine Microscopic WBC 1 0-3 /HPF Urine Squamous Epithelial Cells None seen <5 /hpf Urine Bacteria None seen None Seen /hpf Urine Glucose Normal Normal mg/dL Troponin I High Sensitivity < 3 L </=54 ng/L Assessment Recurrent passing out event ? Syncope ? TIA/stroke ? Partial complex seizure Hyperreflexia in the right upper extremity To rule out intracranial pathology ? Chronic cervical radiculopathy Paresthesia and pain in the right anterolateral aspect of the thigh Meralgia paresthetica Rule out lumbar spine radiculopathy, less likely Asymmetric knee jerk with left-sided stronger ? Left lumbar spine radiculopathy ? Intracranial pathology Plan/Recommendation Monitoring Supportive treatment Telemetry EEG, okay as outpatient MR brain scan without contrast MR brain scan as outpatient (social work/piano case maker to help) Follow up with his doctors on discharge ANABEL More recommendation per clinical course Progress: Poor This medical document was created using an electronic medical record system with [employer] computerized dictation system. Although this document has been carefully reviewed, there may still be some phonetic and typographical errors. These areas are purely typographical due to imperfections of the software programs, and do not reflect any compromise in the patient's medical care. Plan discussed with: Patient, Other JC VILLANUEVA MD Nov 27, 2024 21:15
[2024-11-27] MEDS ORDERED: LORazepam 2MG/ML-1ML VIAL IV PRN (22:00)
[2024-11-27] MEDS: MELATONIN 5 MG TAB PO SCH (22:16)
[2024-11-28 05:00] VITALS: BP 141/72; PULSE 64; RESP 16; TEMP 98.1; O2SAT 94
[2024-11-28 08:00] VITALS: PULSE 57; RESP 16; O2SAT 98
[2024-11-28 09:00] VITALS: BP 151/99; PULSE 57; RESP 19; TEMP 97.8; O2SAT 98
[2024-11-28] MEDS: LISINOPRIL 5 MG TAB PO SCH (10:08)
[2024-11-28] MEDS: PANTOPRAZOLE 40 MG TAB PO SCH (10:08)
--- NOTE | 2024-11-28 10:25 | DVH ---
PROCEDURE: MRI BRAIN HEAD WO CONTRAST INDICATION: CVA. Hyperreflexia EXAM DATE: 11/28/2024 09:10 AM COMPARISON: CT HEAD WITHOUT CONTRAST on DOS: 11/26/24 TECHNIQUE: MRI of the brain without intravenous contrast. FINDINGS: Diffusion weighted images of the brain demonstrate no evidence of acute infarction. There is no evidence of acute intracranial hemorrhage, extra-axial collection, mass effect, midline s hift, herniation or hydrocephalus. The ventricles, sulci and cisterns appear age appropriate. Zadl-lo-qagxcaal changes of chronic microvascular ischemic disease. There are no signal abnormalities on the susceptibility weighted sequences. The major vascular flow voids are present. Ethmoid sinus disease. The surrounding soft tissues and osseous structures are unremarkable. IMPRESSION: 1. No evidence of acute infarction, intracranial hemorrhage, mass effect or hydrocephalus. Mild-to-mo derate changes of chronic microvascular ischemic disease. Ethmoid sinus disease. HS:Y
--- NOTE | 2024-11-28 11:32 | DVHPN2 ---
Reviewed: Care Plan, H&P, Labs, Medications, Previous Orders, Radiology Changes from previous H/P or p: No Changes Objective Vitals Vital Signs Date Time Temp Pulse Resp B/P (MAP) Pulse Ox O2 Delivery O2 Flow Rate FiO2 11/28/24 10:08 151/99 11/28/24 09:00 97.8 57 19 98 97.8 11/28/24 08:00 Room Air* 0 21 Intake/Output Intake and Output 11/28/24 07:00 Intake Total 1670 ml Balance 1670 ml Intake Oral 1670 ml # Voids 5 # Bowel Movements 5 Medications Current Medications Medications Dose Ordered Sig/Steven Route Start Time Stop Time Status Last Admin Dose Admin Sodium Chloride 10 ml Q8HR IV 11/26/24 22:00 11/28/24 07:06 10 ML Docusate Sodium 100 mg BIDPRN PRN PO 11/26/24 19:00 Acetaminophen 650 mg Q6HP PRN PO 11/26/24 19:00 Acetaminophen/ Hydrocodone Bitart 1 tab Q4HP PRN PO 11/26/24 19:00 11/28/24 07:11 1 TAB Ondansetron HCl 4 mg Q4HP PRN IV 11/26/24 19:00 Enoxaparin Sodium 40 mg DAILY SC 11/27/24 10:00 11/28/24 10:07 40 MG Pantoprazole Sodium 40 mg DAILY PO 11/28/24 10:00 11/28/24 10:08 40 MG Lisinopril 10 mg DAILY PO 11/28/24 10:00 11/28/24 10:08 10 MG Sucralfate 1 gm QID PO 11/27/24 18:00 11/28/24 07:06 1 GM Melatonin 10 mg HS PO 11/27/24 22:00 11/27/24 22:16 10 MG Lorazepam 1 mg ONCE PRN IV 11/27/24 22:00 Laboratory Results Laboratory Tests 11/27/24 06:55 Urinalysis Test 11/26/24 17:00 Urine Color Light-yellow (Yellow) Urine Clarity Clear (Clear) Urine pH 6.5 (5.0-9.0) Urine Specific [place] 1.006 (1.001-1.035) Urine Protein Negative (Negative) Urine Ketones Negative (Negative) Urine Blood Negative /uL (Negative) Urine Nitrite Negative (Negative) Urine Bilirubin Negative (Negative) Urine Urobilinogen Normal mg/dL (Negative) Urine Leukocyte Esterase Negative /uL (Negative) Urine RBC 1 /hpf (0 - 3) Urine Microscopic WBC 1 /HPF (0-3) Urine Squamous Epithelial Cells None seen /hpf (<5) Urine Bacteria None seen /hpf (None Seen) Urine Glucose Normal mg/dL (Normal) Labs and/or images reviewed: Labs reviewed by me, Image(s) reviewed by me Assessment/Plan Assessment/Plan Syncope unknown etiology rule out TIA rule out CVA, CT head negative carotid ultrasound negative neurology consult by Dr. Britton appreciated History of syncopal episodes for the last 1 1/2 years being followed by a neurologist Hypertension History of cocaine use 12 yrs back. Current marijuana abuse: Counseling Echocardiogram normal 55 percent ejection fraction Time spent 40 minutes Patient Feels better and wants to go home Plan discussed with: Patient My Orders Orders - DARRICK MURRAY MD Procedure Category Date Status Time Pantoprazole Tablet PHA 11/28/24 In Process (Protonix Tablet) 10:00 Lisinopril Tablet PHA 11/28/24 In Process (Zestril Tablet) 10:00 Sucralfate Tab PHA 11/27/24 In Process (Carafate Tab) 18:00 Date of Service: Nov 28, 2024 Billing Provider: DARRICK MURRAY MD Common Visit Codes: [id number] INP/OBS CARE(HIGH) DARRICK MURRAY MD Nov 28, 2024 11:31
--- NOTE | 2024-11-28 11:35 | DVHDS2 ---
Discharge Summary Date of Admission Nov 26, 2024 at 18:58 Date of Discharge: Nov 28, 2024 Admitting Diagnosis Dizziness Wounds: None Labs/Diagnostic Data: Laboratory Results Test 11/27/24 15:07 11/27/24 06:55 11/26/24 17:00 11/26/24 16:49 Urine Opiates Screen Neg (NEGATIVE) Urine Fentanyl Screen Neg (NEGATIVE) Urine Barbiturates Screen Neg (NEGATIVE) Urine Phencyclidine Screen Neg (NEGATIVE) Urine Amphetamines Screen Neg (NEGATIVE) Urine Benzodiazepines Screen Neg (NEGATIVE) Urine Cocaine Screen Neg (NEGATIVE) Urine Cannabinoids Screen Pos (NEGATIVE) White Blood Count 4.7 10^3/uL (4.4-10.8) Red Blood Count 3.82 10^6/uL (4.5-5.90) Hemoglobin 12.3 g/dL (13.5-17.5) Hematocrit 35.9 % (41.0-53.0) Mean Corpuscular Volume 94.0 fL (80.0-100.0) Mean Corpuscular Hemoglobin 32.1 pg (28.0-32.0) Mean Corpuscular Hemoglobin Concent 34.2 g/dL (32.0-36.0) Red Cell Distribution Width 14.0 % (11.8-14.3) Platelet Count 190 10^3/uL (140-450) Mean Platelet Volume 7.6 fL (6.9-10.8) Neutrophils (%) (Auto) 44.6 % (37.0-80.0) Lymphocytes (%) (Auto) 37.4 % (10.0-50.0) Monocytes (%) (Auto) 12.2 % (0.0-12.0) Eosinophils (%) (Auto) 5.2 % (0.0-7.0) Basophils (%) (Auto) 0.6 % (0.0-2.0) Neutrophils # (Auto) 2.1 10 ^3/uL (1.6-8.6) Lymphocytes # (Auto) 1.7 10 ^3/uL (0.4-5.4) Monocytes # (Auto) 0.6 10 ^3/uL (0-1.3) Eosinophils # (Auto) 0.2 10 ^3/uL (0-0.8) Basophils # (Auto) 0 10 ^3/uL (0-0.2) Nucleated Red Blood Cells 0.1 % Sodium Level 140 mmol/L (136-145) Potassium Level 4.1 mmol/L (3.5-5.1) Chloride Level 108 mmol/L (98-107) Carbon Dioxide Level 25 mmol/L (20-31) Anion Gap 7 (5-15) Blood Urea Nitrogen 18 mg/dL (9-23) Creatinine 0.89 mg/dL (0.700-1.30) Glomerular Filtration Rate Calc 96 mL/min (>90) BUN/Creatinine Ratio 20.2 (10.0-20.0) Serum Glucose 105 mg/dL (74-106) Calcium Level 8.6 mg/dL (8.7-10.4) Total Bilirubin 0.5 mg/dL (0.2-1.0) Aspartate Amino Transferase (AST) 46 U/L (13-40) Alanine Aminotransferase (ALT) 91 U/L (7-40) Alkaline Phosphatase 74 U/L (46-116) Total Protein 6.1 g/dL (5.7-8.2) Albumin 3.7 g/dL (3.2-4.8) Urine Color Light-yellow (Yellow) Urine Clarity Clear (Clear) Urine pH 6.5 (5.0-9.0) Urine Specific [place] 1.006 (1.001-1.035) Urine Protein Negative (Negative) Urine Ketones Negative (Negative) Urine Blood Negative /uL (Negative) Urine Nitrite Negative (Negative) Urine Bilirubin Negative (Negative) Urine Urobilinogen Normal mg/dL (Negative) Urine Leukocyte Esterase Negative /uL (Negative) Urine RBC 1 /hpf (0 - 3) Urine Microscopic WBC 1 /HPF (0-3) Urine Squamous Epithelial Cells None seen /hpf (<5) Urine Bacteria None seen /hpf (None Seen) Urine Glucose Normal mg/dL (Normal) Troponin I High Sensitivity < 3 ng/L (</=54) Other Laboratory Tests 11/27/24 06:55 Brief Hx & Hospital Course: 64-year-old male came in for dizziness and syncopal episode. History of hypertension and cocaine use 12 years ago chronic current marijuana abuse. CT head was negative carotid ultrasound negative echocardiogram 55 percent ejection fraction and normal vital signs stable labs normal seen by Neurology Dr. Britton. Patient probably had dizziness secondary to marijuana abuse. Patient feels better with stable vital signs and wants to go home. Discharged home. He will follow up with his primary Dr Consults/Reason for consult Neurology Dr. Britton Operations or Procedures CT head Echocardiogram Condition at Discharge: Fair Final Diagnosis/Problems List Syncope unknown etiology rule out TIA rule out CVA, CT head negative carotid ultrasound negative neurology consult by Dr. Britton appreciated History of syncopal episodes for the last 1 1/2 years being followed by a neurologist Hypertension History of cocaine use 12 yrs back. Current marijuana abuse: Counseling Echocardiogram normal 55 percent ejection fraction Discharge Disposition: Home Discharge Instruct/Medications Diet: Regular Activity: No Restrictions, As Tolerated Follow Up/Referral: Follow up with the primary Dr Medications: None 39 (Time taken for discharge summary 39 mts) Discharge Statement: "Patient was advised to return to the ER or call 911 if any headaches, dizziness, shortness of breath, chest pain, abdominal pain, bleeding, fevers, or worsening of medical condition. Patient was counseled about treatment plan, medications, possible side effects, patientverbalized understanding. All questions were answered to the best of my ability. This discharge took greater then 30 minutes in planning, reviewing documentation, counseling the patient, and discussing with other team members." ASSESSMENT ASSESSMENT Hospital Course Improved Assessment Syncope unknown etiology rule out TIA rule out CVA, CT head negative carotid ultrasound negative neurology consult by Dr. Britton appreciated History of syncopal episodes for the last 1 1/2 years being followed by a neurologist Hypertension History of cocaine use 12 yrs back. Current marijuana abuse: Counseling Echocardiogram normal 55 percent ejection fraction Date of Service: Nov 28, 2024 Billing Provider: DARRICK MURRAY MD Common Visit Codes: [id number] DISCH DAY >30min DARRICK MURRAY MD Nov 28, 2024 11:34
[2024-11-28 11:41] LABS: Hematocrit 39.1 % (41.0-53.0); Hemoglobin 13.5 g/dL (13.5-17.5); Mean Corpuscular Hemoglobin 32.3 pg (28.0-32.0); Mean Corpuscular Volume 93.7 fL (80.0-100.0); Nucleated Red Blood Cells % 0.4 %
[2024-11-28 11:57] LABS: Albumin 4.1 g/dL (3.2-4.8); Alkaline Phosphatase 82 U/L (46-116); Anion Gap 5 (5-15); BUN/Creatinine Ratio 17.3 (10.0-20.0); Blood Urea Nitrogen 13 mg/dL (9-23); Calcium 8.9 mg/dL (8.7-10.4); Carbon Dioxide 27 mmol/L (20-31); Glucose 94 mg/dL (74-106); Potassium 4.6 mmol/L (3.5-5.1); Sodium 139 mmol/L (136-145); Total Protein 6.8 g/dL (5.7-8.2)
[2024-11-28 11:58] LABS: Bilirubin, Total 0.5 mg/dL (0.2-1.0)
[2024-11-28 12:00] LABS: Alanine Aminotransferase 132 U/L (7-40); Chloride 107 mmol/L (98-107)
[2024-11-28 13:00] VITALS: BP 156/101; PULSE 60; RESP 18; TEMP 98.1; O2SAT 98
[2024-11-28 13:51] VITALS: BP 155/96; PULSE 56; RESP 16; TEMP 97.8; O2SAT 98
== END 2024-11-28 15:19 | disposition home or self-care (01) | DRG 199 ==
LOC: EDBD 15:52 → ER 15:52 → OVERFLOW 18:58 → WEST WING 21:48 → TELE-WESTW 11-27 12:54
PROVIDERS: ADMIT Family Medicine; ATTEND Family Medicine
DX: I16.0 Hypertensive urgency (principal); R29.2 Abnormal reflex; F12.10 Cannabis abuse, uncomplicated; I10 Essential (primary) hypertension; G57.11 Meralgia paresthetica, right lower limb; Z82.49 Family history of ischemic heart disease and other diseases of the circulatory system; Z89.029 Acquired absence of unspecified finger(s); Z90.49 Acquired absence of other specified parts of digestive tract; Z98.1 Arthrodesis status; Z71.51 Drug abuse counseling and surveillance of drug abuser
CPT/HCPCS: 36415; 70450; 70551; 80048; 80053; 80307; 81001; 84484; 85025; 93005; 93306; 93886; 96360; G0378